=== PATIENT | male | born 1955 | race Caucasian/White ===

== ENCOUNTER 2016-04-24 00:32 | Emergency (ER) | payer OTHER ==
[2016-04-24 01:25] LABS: ACETAMINOPHEN < 10 ug/mL (10-30)
[2016-04-24] MEDS ORDERED: Sodium Chloride 0.9% 1,000 ML IV ONE (02:15)
[2016-04-24 07:29] VITALS: BP 133/74
--- NOTE | 2016-04-24 11:52 | CR ---
INDICATION: Found unresponsive. CHEST: An AP upright view of the chest 04/24/2016 was obtained. No comparisons available. The heart did not appear enlarged. The aorta is tortuous with some minimal calcification suggested near the arch. While a definite active infiltrate or effusion was not identified, there are somewhat heavy markings in the right lower lung field raising question of a minimal patchy bronchopneumonia. No gross consolidating pneumonia or effusion was identified. No evidence of CHF is seen. IMPRESSION: 1. No definite acute process, but difficult to exclude patchy bronchopneumonia at the lower lung field on the right. 2. ASD aorta. MTDD
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
== END 2016-04-24 04:54 | disposition home or self-care (01) ==
LOC: FB.ED 00:32
DX: S01.111A Laceration without foreign body of right eyelid and periocular area, initial encounter (principal); V89.2XXA Person injured in unspecified motor-vehicle accident, traffic, initial encounter; Y90.1 Blood alcohol level of 20-39 mg/100 ml; F10.129 Alcohol abuse with intoxication, unspecified; Z91.048 Other nonmedicinal substance allergy status
CPT/HCPCS: 36415; 70450; 71010; 72125; 80053; 80305; 81001; 82550; 84484; 85025; 85610; 85730; 96360; 99284; G0480; J7040

== ENCOUNTER 2016-10-23 15:29 | Emergency (ER) | payer MEDICAID ==
[2016-10-23] MEDS ORDERED: Bacitracin Oint 15 GM Tube TOP ONE (15:58)
[2016-10-23] MEDS ORDERED: Diphtheria,Pertussis(Acell),Tetanus Vaccine 0.5 ML SDV IM ONE (15:59)
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
[2016-10-23 16:14] VITALS: BP 145/103
== END 2016-10-23 16:13 | disposition home or self-care (01) ==
LOC: FB.ED 15:29
DX: S01.81XA Laceration without foreign body of other part of head, initial encounter (principal); Z90.89 Acquired absence of other organs; Z87.891 Personal history of nicotine dependence; Z23 Encounter for immunization; W26.8XXA Contact with other sharp object(s), not elsewhere classified, initial encounter; Y93.39 Activity, other involving climbing, rappelling and jumping off; Y92.009 Unspecified place in unspecified non-institutional (private) residence as the place of occurrence of the external cause
CPT/HCPCS: 90471; 90715; 99283; A9270-GY

== ENCOUNTER 2017-02-19 00:10 | Emergency (ER) | payer MEDICAID ==
[2017-02-19] MEDS ORDERED: Sodium Chloride 0.9% 10 ML Syringe FLUSH PRN (00:31)
[2017-02-19] MEDS ORDERED: Sodium Chloride 0.9% 1,000 ML IV SCH (00:45)
[2017-02-19] MEDS ORDERED: Potassium Chloride 20 MEQ Tab.ER PO ONE (01:29)
[2017-02-19] MEDS: NS + KCl 20mEq/L 2,000 ML IV SCH ×2 (01:55→03:51)
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
[2017-02-19 06:11] VITALS: BP 135/73
== END 2017-02-19 05:38 | disposition home or self-care (01) ==
LOC: FB.ED 00:10
DX: F10.229 Alcohol dependence with intoxication, unspecified (principal); Y90.2 Blood alcohol level of 40-59 mg/100 ml; Z87.891 Personal history of nicotine dependence
CPT/HCPCS: 36415; 80053; 80305; 84132; 85025; 96365; 96366; 99284; A9270; G0480; J3480

== ENCOUNTER 2017-03-15 16:13 | Observation (INO) | payer MEDICAID ==
--- NOTE | 2017-03-15 18:44 | EDM.PDOC ---
ED HPI GENERAL MEDICAL PROBLEM - General Chief Complaint: Laceration Stated Complaint: HEAD INJURY Time Seen by Provider: 03/15/17 16:15 Source of Information: Reports: Patient History Limitations: Reports: No Limitations - History of Present Illness INITIAL COMMENTS - FREE TEXT/NARRATIVE: 61 y.o.w.m came to the ed by EMS after he slipped on ice and fell onto hi right head. Pt denied LOC but has in the past a SD hemotoma. Pt stated, he fell frequently. Why he is falling so often was never found out. Pt stated, he horn not drink or smoke. He has, however, a lot of shaking of his extremities. He could not tell me when he took his last ETOH. He lived by himself, has no friends, no driving license and has no car. He walks wherever he has to go. No N /V/D or dizziness. He noticed blood at his right tamika for which he called EMS> BP 130/90 RR 12 Pulse ox 98 on RA Temp 36.8 pulse 112 Onset Date: 03/15/17 Onset Time: 15:00 Duration: Hour(s): Location: Reports: Head, Generalized Quality: Reports: Same as Previous Episode Severity: Mild Improves with: Reports: Rest Worsens with: Reports: Movement Context: Reports: Trauma (fall on ice) Associated Symptoms: Reports: No Other Symptoms lt mid finger, Rt hand & face Pain Score (Numeric/FACES): 3 - Related Data Allergies Allergy/AdvReac Type Severity Reaction Status Date / Time No Known Allergies Allergy Verified 03/15/17 17:53 Home Meds: Home Meds NK [No Known Home Meds] 10/23/16 [History] Past Medical History HEENT History: Reports: Sinusitis Cardiovascular History: Reports: Hypertension Musculoskeletal History: Reports: Other (See Below) Other Musculoskeletal History: injury to rt shoulder 2 month ago Neurological History: Reports: Other (See Below) Other Neuro History: subdural bleed Psychiatric History: Reports: Other (See Below) Other Psychiatric History: alcohol abuse. - Infectious Disease History Infectious Disease History: Reports: Chicken Pox, Mumps - Past Surgical History HEENT Surgical History: Reports: Naso-Sinus Surgery GI Surgical History: Reports: Appendectomy, Hernia, Inguinal Male Surgical History: Reports: Varicocele Resection Social & Family History - Family History Family Medical History: Noncontributory - Tobacco Use Smoking Status *Q: Never Smoker Years of Tobacco use: 20 Packs/Tins Daily: 0.5 Used Tobacco, but Quit: Yes Month Tobacco Last Used: unknown Second Hand Smoke Exposure: No - Caffeine Use Caffeine Use: Reports: Coffee, Soda - Alcohol Use Days Per Week of Alcohol Use: 7 Number of Drinks Per Day: 1 Total Drinks Per Week: 7 - Recreational Drug Use Recreational Drug Use: No ED ROS GENERAL - Review of Systems Review Of Systems: See Below Constitutional: Reports: No Symptoms HEENT: Reports: No Symptoms Respiratory: Reports: No Symptoms Cardiovascular: Reports: No Symptoms Endocrine: Reports: No Symptoms GI/Abdominal: Reports: No Symptoms : Reports: No Symptoms Musculoskeletal: Reports: No Symptoms Skin: Reports: No Symptoms Neurological: Reports: No Symptoms Psychiatric: Reports: No Symptoms Hematologic/Lymphatic: Reports: No Symptoms Immunologic: Reports: No Symptoms ED EXAM, SKIN/RASH Exam: See Below Exam Limited By: Physical Impairment General Appearance: Alert, No Apparent Distress, Thin Eye Exam: Bilateral Eye: Normal Inspection Ears: Normal External Exam Nose: Normal Inspection, Normal Mucosa Throat/Mouth: Normal Inspection, Normal Lips Head: Other (3 lacerations at the right temp area) Neck: Normal Inspection Respiratory/Chest: No Respiratory Distress, Lungs Clear, Normal Breath Sounds Cardiovascular: Normal Peripheral Pulses, Regular Rate, Rhythm, No Edema, No Gallop GI/Abdominal: Normal Bowel Sounds, Soft, Non-Tender (Male) Exam: Deferred Rectal (Males) Exam: Deferred Back Exam: Normal Inspection, Full Range of Motion Extremities: Normal Inspection, Normal Range of Motion, Non-Tender, No Pedal Edema Neurological: Alert, Oriented, CN II-XII Intact, Normal Cognition, Normal Gait, Other (tremors) Psychiatric: Anxious, Depressed Mood Skin: Warm Location, Skin: Head, Face Associated features: Warmth, Tenderness Lymphatic: No Adenopathy ED SKIN PROCEDURES - Laceration/Wound Repair Right Lateral Head Lac/Wound length In cm: 5 Appearance: Superficial, Stellate, Irregular Distal NVT: Neuro & Vascular Intact Anesthetic Type: Local Local Anesthesia - Bupivicaine (Marcaine): 0.5% Plain Local Anesthetic Volume: 5cc Skin Prep: Providone-Iodine (Betadine) Saline Irrigation (cc's): 8 Suture Size: 4-0 # of Sutures: 8 Suture Type: Other (ethilon) Drain Placement: No Sterile Dressing Applied: Nurse Tetanus Status Addressed: Yes (UTD) Complications: No Course - Vital Signs Text/Narrative:: 61 y.o.w.m came to the ed by EMS after he slipped on ice and fell onto hi right head. Pt denied LOC but has in the past a SD hemotoma. Pt stated, he fell frequently. Why he is falling so often was never found out. Pt stated, he ohrn not drink or smoke. He has, however, a lot of shaking of his extremities. He could not tell me when he took his last ETOH. He lived by himself, has no friends, no driving license and has no car. He walks wherever he has to go. No N /V/D or dizziness. He noticed blood at his right tamika for which he called EMS> BP 130/90 RR 12 Pulse ox 98 on RA Temp 36.8 pulse 112 PE: Thin/cachectic 61 y.o.w.m eith a head lac and tremor Procedure: Please see note above. Imaging: CT head; R pot SD bleed, old. NAD as per RAD Reexam: as the pt came back from the CT, he had a Gandmall Sz while in his bed. Old record were checked which showed pt is a chronic ETOH abuser. Pt was placed in last stable condition, Iv was stared and 2 mg if Ativan were given, which helped some. 50 mg if Benadryl were given, whic helped some. Pt was still very combative, Haldol was indicated. Pt was admitted to ICU. Labs: NL WBC BUN 6 CR 1.2 INR 1.12 Impression: H/O frequent falls, H/O ETOH abuse, cachexia, ETOH withdrawel Seizure 11.49 pm: Consultation: Dr. Gong: Last Recorded V/S: Last Vital Signs Temp 36.9 C 03/16/17 00:21 Pulse 136 H 03/15/17 19:50 Resp 15 03/16/17 02:00 BP 131/95 H 03/16/17 02:00 Pulse Ox 99 03/16/17 02:00 - Orders/Labs/Meds Orders: Active Orders 24 hr Category Date Time Status Head wo Cont [CT] Stat Exams 03/15/17 18:40 Taken AMMONIA [REF] Stat Lab 03/15/17 19:25 Received Seizure Precautions [OM.PC] Routine Oth 03/15/17 19:22 Ordered Medication Orders Lorazepam (Ativan) 1 mg IVPUSH Q2H PRN PRN Reason: Agitation Ondansetron HCl (Zofran) 4 mg IV Q4H PRN PRN Reason: Nausea/Vomiting Labs: Laboratory Tests 03/15/17 03/15/17 03/15/17 Range/Units 19:25 19:25 19:25 WBC 6.7 (4.5-12.0) X10-3/uL RBC 3.42 L (4.30-5.75) x10(6)uL Hgb 13.5 (11.5-15.5) g/dL Hct 36.9 (30.0-51.3) % MCV 107.9 H (80-96) fL MCH 39.4 H (27.7-33.6) pg MCHC 36.5 H (32.2-35.4) g/dL RDW 19.8 H (11.5-15.5) % Plt Count 139 (125-369) X10(3)uL MPV 7.1 L (7.4-10.4) fL Neut % (Auto) 41.9 L (46-82) % Lymph % (Auto) 46.6 H (13-37) % Whitman % (Auto) 10.9 (4-12) % Eos % (Auto) 0 L (1.0-5.0) % Baso % (Auto) 0 (0-2) % Neut # (Auto) 2.8 (1.6-8.3) # Lymph # (Auto) 3.2 (0.6-5.0) # Whitman # (Auto) 0.7 (0.0-1.3) # Eos # (Auto) 0.0 (0.0-0.8) # Baso # (Auto) 0.0 (0.0-0.2) # PT 12.2 H (8.7-11.1) INR 1.21 H (0.89-1.13) Sodium 138 (135-145) mmol/L Potassium 3.5 (3.5-5.3) mmol/L Chloride 98 L D (100-110) mmol/L Carbon Dioxide 17 L (21-32) mmol/L BUN 6 L (7-18) mg/dL Creatinine 1.2 (0.70-1.30) mg/dL Est Cr Clr Drug Dosing 75.16 mL/min Estimated GFR (MDRD) > 60 (>60) BUN/Creatinine Ratio 5.0 L (9-20) Glucose 139 H (80-116) mg/dL Calcium 9.0 (8.6-10.2) mg/dL Total Bilirubin 1.3 (0.1-1.3) mg/dL Direct Bilirubin 0.40 H (0.10-0.20) mg/dL AST 90 H (5-25) IU/L ALT 51 H D (12-36) U/L Alkaline Phosphatase 164 H (56-112) IU/L NT-Pro-B Natriuret Pep (<=125) pg/mL Total Protein 8.0 (6.0-8.0) g/dL Albumin 3.3 (3.2-4.6) g/dL Amylase 94 (25-115) U/L Ethyl Alcohol (<0.03) % 03/15/17 Range/Units 19:25 WBC (4.5-12.0) X10-3/uL RBC (4.30-5.75) x10(6)uL Hgb (11.5-15.5) g/dL Hct (30.0-51.3) % MCV (80-96) fL MCH (27.7-33.6) pg MCHC (32.2-35.4) g/dL RDW (11.5-15.5) % Plt Count (125-369) X10(3)uL MPV (7.4-10.4) fL Neut % (Auto) (46-82) % Lymph % (Auto) (13-37) % Whitman % (Auto) (4-12) % Eos % (Auto) (1.0-5.0) % Baso % (Auto) (0-2) % Neut # (Auto) (1.6-8.3) # Lymph # (Auto) (0.6-5.0) # Whitman # (Auto) (0.0-1.3) # Eos # (Auto) (0.0-0.8) # Baso # (Auto) (0.0-0.2) # PT (8.7-11.1) INR (0.89-1.13) Sodium (135-145) mmol/L Potassium (3.5-5.3) mmol/L Chloride (100-110) mmol/L Carbon Dioxide (21-32) mmol/L BUN (7-18) mg/dL Creatinine (0.70-1.30) mg/dL Est Cr Clr Drug Dosing mL/min Estimated GFR (MDRD) (>60) BUN/Creatinine Ratio (9-20) Glucose (80-116) mg/dL Calcium (8.6-10.2) mg/dL Total Bilirubin (0.1-1.3) mg/dL Direct Bilirubin (0.10-0.20) mg/dL AST (5-25) IU/L ALT (12-36) U/L Alkaline Phosphatase (56-112) IU/L NT-Pro-B Natriuret Pep 1611 H* (<=125) pg/mL Total Protein (6.0-8.0) g/dL Albumin (3.2-4.6) g/dL Amylase (25-115) U/L Ethyl Alcohol < 0.03 (<0.03) % Meds: Medications Generic Name Dose Route Start Last Admin Trade Name Freq PRN Reason Stop Dose Admin Lorazepam 1 mg 03/16/17 00:26 Ativan IVPUSH Q2H PRN Agitation Ondansetron HCl 4 mg 03/15/17 19:59 Zofran IV Q4H PRN Nausea/Vomiting Discontinued Medications Generic Name Dose Route Start Last Admin Trade Name Freq PRN Reason Stop Dose Admin Diphenhydramine HCl Confirm 03/15/17 19:10 03/15/17 19:41 Benadryl Administered 03/15/17 19:11 Not Given Dose 50 mg .ROUTE .STK-MED ONE Diphenhydramine HCl 50 mg 03/15/17 19:15 03/15/17 19:13 Benadryl IVPUSH 03/15/17 19:16 50 mg ONETIME ONE Administration Haloperidol Lactate 5 mg 03/15/17 19:13 03/15/17 20:59 Haldol IVPUSH 03/15/17 19:14 Not Given ONETIME ONE Haloperidol Lactate Confirm 03/15/17 19:13 03/15/17 19:41 Haldol Administered 03/15/17 19:14 Not Given Dose 5 mg .ROUTE .STK-MED ONE Haloperidol Lactate 5 mg 03/15/17 19:15 03/15/17 19:15 Haldol IM 03/15/17 19:16 5 mg ONETIME ONE Administration Lorazepam Confirm 03/15/17 19:04 03/15/17 19:41 Ativan Administered 03/15/17 19:05 Not Given Dose 2 mg .ROUTE .STK-MED ONE Lorazepam 2 mg 03/15/17 19:13 03/15/17 19:10 Ativan IVPUSH 03/15/17 19:14 2 mg ONETIME ONE Administration Departure - Departure Time of Disposition: 19:00 Disposition: Admitted As Inpatient 66 Condition: Fair Clinical Impression: Seizure - Discharge Information - My Orders Last 24 Hours: My Active Orders 03/15/17 18:40 Head wo Cont [CT] Stat 03/15/17 19:22 Seizure Precautions [OM.PC] Routine 03/15/17 19:25 AMMONIA [REF] Stat - Assessment/Plan Last 24 Hours: My Active Orders 03/15/17 18:40 Head wo Cont [CT] Stat 03/15/17 19:22 Seizure Precautions [OM.PC] Routine 03/15/17 19:25 AMMONIA [REF] Stat
[2017-03-15] MEDS ORDERED: LORazepam 2 MG/ML SDV ONE (19:04)
[2017-03-15] MEDS ORDERED: diphenhydrAMINE 50 MG/ML SDV ONE (19:10)
[2017-03-15] MEDS ORDERED: Haloperidol Lactate 5 MG/ML SDV ONE (19:13)
[2017-03-15] MEDS ORDERED: LORazepam 2 MG/ML SDV IVPUSH ONE (19:13)
[2017-03-15] MEDS ORDERED: diphenhydrAMINE 50 MG/ML SDV IVPUSH ONE (19:15)
[2017-03-15] MEDS: Haloperidol Lactate 5 MG/ML SDV IVPUSH ONE ×2 (19:15→20:59)
[2017-03-15] MEDS ORDERED: Haloperidol Lactate 5 MG/ML SDV IM ONE (19:15)
[2017-03-15] MEDS ORDERED: Ondansetron 4 MG/2 ML SDV IV PRN (19:59)
[2017-03-15] MEDS ORDERED: Bupivacaine 0.5% 30 ML SDV INFILT ONE (20:00)
[2017-03-16] MEDS ORDERED: LORazepam 2 MG/ML SDV IVPUSH PRN (00:26)
[2017-03-16] MEDS ORDERED: Thiamine 200 MG/2 ML MDV IV ONE (08:32)
--- NOTE | 2017-03-16 08:37 | CT ---
INDICATION: Fell face first, lacerations right side around eye. CT HEAD WITHOUT CONTRAST: Serial contiguous 2.5 and 5-mm sections were obtained through the brain without contrast 03/15/2017 and were compared with examination. Total Exam DLP = 1093.23 mGy-cm. Evidence of right frontoparietal craniotomy is noted for previous subdural. No shift of midline structures, ventricular abnormalities, or significant appearing abnormal areas of density were identified. No bleeding site or hematoma was seen. There is subdural hygroma noted posteroparietal on the right , likely a remnant from previous subdural hematoma. No acute fracture site is identified. There is soft tissue swelling noted overlying the right frontal bone and right orbit. Paranasal sinuses and mastoid air cells appear to be fairly well aerated, with minimal thickening of the lining along a portion of the right maxillary antrum. IMPRESSION: 1. Overall little change from previous study of 09/19/2016, except to note subdural hygroma on the right posteroparietal area, likely the result of previous subdural hematoma in this post right craniotomy patient. No acute intracranial abnormality seen. 2. Right frontal and orbital facial swelling. No specific orbital abnormality identified. 3. Degenerative changes are noted at the atlantoodontoid joint, as partly visualized. Report was called to Dr. Pretty at 1902 hours, 03/15/2017. [facility]
[2017-03-16] MEDS ORDERED: Divalproex Sodium Delayed-Release 500 MG Tab.CR PO ONE (08:38)
[2017-03-16] MEDS ORDERED: Sodium Chloride 0.9% 1,000 ML IV SCH (08:45)
--- NOTE | 2017-03-16 09:11 | PCM.HP ---
H&P History of Present Illness - General Date of Service: 03/16/17 Admit Problem/Dx: Admission Diagnosis/Problem Admission Diagnosis/Problem Seizure Source of Information: Patient, Family, Old Records History Limitations: Reports: No Limitations - History of Present Illness Initial Comments - Free Text/Narative: 61-year-old male who came in because of a head injury. He said that he slipped on ice and hit his head but did not pass out. While in the emergency room,he had Grand mal seizure that was witnessed by the staff. Patients with admitted for observation. He is a well known alcoholic, and has had multiple head injuries and concussions in the past. According to his records he supposed to be taking Keppra but it's unclear when the last time he took it. In November he had a subdural hematoma that was surgically evacuated. He has had ataxia and gait problems to the point of being unable to drive. Sae lives alone. He states he had a recent alcohol use after a few months of sobriety. He denies any headache nausea or vomiting. This morning he is oriented 3. lt mid finger, Rt hand & face Pain Score (Numeric/FACES): 0 - Related Data Allergies/Adverse Reactions: Allergies Allergy/AdvReac Type Severity Reaction Status Date / Time No Known Allergies Allergy Verified 03/15/17 17:53 Home Medications: Home Meds NK [No Known Home Meds] 10/23/16 [History] Past Medical History HEENT History: Reports: Sinusitis Cardiovascular History: Reports: Hypertension Musculoskeletal History: Reports: Other (See Below) Other Musculoskeletal History: injury to rt shoulder 2 month ago Neurological History: Reports: Other (See Below) Other Neuro History: subdural bleed Psychiatric History: Reports: Other (See Below) Other Psychiatric History: alcohol abuse. - Infectious Disease History Infectious Disease History: Reports: Chicken Pox, Mumps - Past Surgical History HEENT Surgical History: Reports: Naso-Sinus Surgery GI Surgical History: Reports: Appendectomy, Hernia, Inguinal Male Surgical History: Reports: Varicocele Resection Social & Family History - Family History Family Medical History: Noncontributory - Tobacco Use Smoking Status *Q: Never Smoker Years of Tobacco use: 20 Packs/Tins Daily: 0.5 Used Tobacco, but Quit: Yes Month Tobacco Last Used: unknown Second Hand Smoke Exposure: No - Caffeine Use Caffeine Use: Reports: Coffee, Soda - Alcohol Use Days Per Week of Alcohol Use: 7 Number of Drinks Per Day: 1 Total Drinks Per Week: 7 - Recreational Drug Use Recreational Drug Use: No H&P Review of Systems - Review of Systems: Review Of Systems: ROS reveals no pertinent complaints other than HPI. Exam - Exam Exam: See Below - Vital Signs Vital Signs: Last Vital Signs Temp 97.9 F 03/16/17 03:11 Pulse 95 03/16/17 07:50 Resp 18 03/16/17 07:50 BP 119/75 03/16/17 07:50 Pulse Ox 95 03/16/17 07:50 Weight: 80.966 kg - Exam General: Alert, Oriented, 4 HEENT: Other (Marked jeanette-orbital hematoma on the left eye). No: EOMI Neck: Supple, Trachea Midline, 2 Lungs: Clear to Auscultation, Normal Respiratory Effort Cardiovascular: Regular Rhythm, Tachycardia GI/Abdominal Exam: Normal Bowel Sounds, Soft, Non-Tender, No Organomegaly, No Distention, No Abnormal Bruit, No Mass, Pelvis Stable (Male) Exam: No Hernia, Normal Inspection, Normal Prostate, Circumcised Rectal (Males) Exam: Normal Exam, Normal Rectal Tone, Prostate Normal Back Exam: Normal Inspection, Full Range of Motion, NT Extremities: Normal Inspection, Normal Range of Motion, Non-Tender, No Pedal Edema, Normal Capillary Refill Skin: Warm, Dry, Intact Neurological: Cranial Nerves Intact, Reflexes Equal Bilateral Neuro Extensive - Mental Status: Alert, Oriented x3, Normal Mood/Affect, Normal Cognition Neuro Extensive - Motor, Sensory, Reflexes: Abnormal Motor, Other (Tremulous) Psychiatric: Alert, Normal Affect, Normal Mood - Patient Data Result Diagrams: 03/15/17 19:25 03/16/17 08:50 Imaging Impressions Last 24 hrs: CT-no acute changes-see report *Q Meaningful Use (ADM) - VTE *Q VTE Criteria *Q: - Stroke *Q Stroke Criteria *Q: - AMI *Q AMI Criteria *Q: - Problem List (1) Ataxia SNOMED Code(s): 27487166 ICD Code: R27.0 - ATAXIA, UNSPECIFIED Status: Acute Current Visit: Yes (2) Alcoholism, chronic SNOMED Code(s): 8069799 ICD Code: F10.20 - ALCOHOL DEPENDENCE, UNCOMPLICATED Status: Chronic Current Visit: No (3) Forehead laceration SNOMED Code(s): 907654551 ICD Code: S01.81XA - LACERATION W/O FOREIGN BODY OF OTH PART OF HEAD, INIT ENCNTR Status: Acute Current Visit: No Qualifiers: Encounter type: initial encounter Qualified Code(s): S01.81XA - Laceration without foreign body of other part of head, initial encounter (4) Seizure SNOMED Code(s): 17244881 ICD Code: R56.9 - UNSPECIFIED CONVULSIONS Status: Acute Current Visit: Yes Problem List Initiated/Reviewed/Updated: Yes Orders Last 24hrs: Active Orders 24 hr Category Date Time Status OT Evaluation and Treatment [CONS] Routine Cons 03/16/17 08:32 Active PT Evaluation and Treatment [CONS] Routine Cons 03/16/17 08:32 Active Adult Diet [DIET] Diet 03/16/17 Lunch Active BASIC METABOLIC PANEL,BMP [CHEM] Stat Lab 03/16/17 08:50 Received CBC WITH AUTO DIFF [HEME] Stat Lab 03/16/17 08:50 Received CREATINE KINASE,CK [CHEM] Routine Lab 03/16/17 08:50 Received MAGNESIUM [CHEM] Routine Lab 03/16/17 08:50 Received LORazepam [Ativan] Med 03/16/17 00:26 Active 1 mg IVPUSH Q2H PRN Sodium Chloride 0.9% [Normal Saline] 1,000 ml Med 03/16/17 08:45 Active IV ASDIRECTED Medication Orders Sodium Chloride (Normal Saline) 1,000 mls @ 100 mls/hr IV ASDIRECTED HANNAH Last Admin: 03/16/17 08:44 Dose: 100 mls/hr Lorazepam (Ativan) 1 mg IVPUSH Q2H PRN PRN Reason: Agitation Ondansetron HCl (Zofran) 4 mg IV Q4H PRN PRN Reason: Nausea/Vomiting Assessment/Plan Comment:: I will advance his diet, and started IV fluids and thiamine. He is to very unstable on his feet and I feel that extensive for discharge until we have a formal physical outpatient therapy evaluation. Of ordered for repeat CBC BMP magnesium level and CPK. mission worker consultation is also necessary. In the meantime I will give him a one-time dose of Depakote for seizure and alcohol withdrawal treatment
[2017-03-16 12:21] VITALS: BP 152/95
--- NOTE | 2017-03-19 08:49 | PN ---
DATE SEEN: 03/16/2017 ADDENDUM: I spoke to the staff and also reviewed the report from Physical Therapy. The patient is able to be independent at home. He is not interested in inpatient care or detoxification or chemical dependency treatment. He is drinking and eating with no vomiting and I have decided to discharge him home. His labs did show creatine kinase of 360, probably from muscle injury, and magnesium was 1.4. His electrolytes are back to normal. DISCHARGE MEDICATIONS: I will discharge him home on: 1. Depakote 500 mg a day for withdrawal and for seizures. 2. Magnesium tablets 400 mg 3 times a day. 3. He will go home on thiamine 100 mg a day. He is advised to follow up with Dr. Gomez in 5 to 7 days. /[id number] KEYLA/CHRISTINA
== END 2017-03-16 16:18 | disposition home or self-care (01) ==
LOC: FB.ED 16:13 → FB.ICU 19:59
PROVIDERS: ADMIT Emergency Medicine; ATTEND Family Medicine
DX: S01.81XA Laceration without foreign body of other part of head, initial encounter (principal); I10 Essential (primary) hypertension; R27.0 Ataxia, unspecified; F10.20 Alcohol dependence, uncomplicated; R56.9 Unspecified convulsions; W00.0XXA Fall on same level due to ice and snow, initial encounter; Z91.81 History of falling; Z90.49 Acquired absence of other specified parts of digestive tract
CPT/HCPCS: 36415; 70450; 80048; 80076; 82140; 82150; 82550; 83735; 83880; 85025; 85610; 97161; 99283; A9270; G0480; J1200; J1630; J2060; J3411; J7040; 96361; 96372; 96374; 96375; G0378; J7030

== ENCOUNTER 2017-03-28 20:08 | Observation (INO) | payer MEDICAID, OTHER ==
[2017-03-28] MEDS ORDERED: LORazepam 2 MG/ML MDV ONE (20:25)
[2017-03-28] MEDS ORDERED: LORazepam 2 MG/ML MDV IM SCH (20:30)
[2017-03-28] MEDS ORDERED: Potassium Chloride 10% 20 MEQ/15 ML Soln 15 ML UD Cup PO ONE (21:34)
[2017-03-28] MEDS ORDERED: Pantoprazole 40 MG Vial IV SCH (22:00)
[2017-03-28] MEDS ORDERED: LORazepam 1 MG Tab ONE (22:06)
[2017-03-28] MEDS ORDERED: Ondansetron 4 MG/2 ML SDV IV PRN (22:24)
[2017-03-28] MEDS ORDERED: Acetaminophen 325 MG Tab PO PRN (22:24)
[2017-03-28] MEDS ORDERED: Ibuprofen 600 MG Tab PO PRN (22:24)
[2017-03-28] MEDS ORDERED: LORazepam 1 MG Tab PO SCH ×2 (22:26→22:45)
[2017-03-28] MEDS ORDERED: Sodium Chloride 0.9% 1,000 ML IV SCH (22:30)
[2017-03-28] MEDS ORDERED: Thiamine 100 MG in Sodium Chloride 0.9% 50 ML IV ONE (22:32)
[2017-03-28] MEDS ORDERED: Metoprolol Tartrate 25 MG Tab PO PRN (22:32)
[2017-03-28] MEDS: Sodium Chloride 0.9% 10 ML Syringe FLUSH PRN (22:58)
[2017-03-28] MEDS: Dextrose 5%-0.9% NaCl 1,000 ML IV SCH (22:59)
[2017-03-28] MEDS: Multivitamin Tab PO SCH (23:28)
[2017-03-28] MEDS: Folic Acid 1 MG Tab PO SCH (23:28)
[2017-03-29] MEDS: Dextrose 5%-0.9% NaCl 1,000 ML IV SCH (07:15)
[2017-03-29] MEDS: Sodium Chloride 0.9% 10 ML Syringe FLUSH PRN (08:00)
--- NOTE | 2017-03-29 08:32 | PCM.HP ---
H&P History of Present Illness - General Date of Service: 03/29/17 Admit Problem/Dx: Admission Diagnosis/Problem Admission Diagnosis/Problem Seizure Source of Information: Patient, Other (Nurses) History Limitations: Reports: No Limitations - History of Present Illness Initial Comments - Free Text/Narative: Assist 61-year-old male patient has a history of drinking a half of liter of vodka every day. He was thrown in halfway on Sunday of this week which is 2 days ago for a probation violation. Last night and then made pushed the [employer] button in this patient was having a seizure. He was brought here and then admitted. Patient admits that he was having some shakes this week. He also is on Depakote for seizures after he had a subdural hematoma in July 2016. He is evacuated [facility] in [place]. He's not sure if he's ever had a seizure other than from alcohol according to the patient. This morning the patient feels good. Patient denies fevers. He has nasal congestion from chronic environmental allergies. There is reportedly shaky when he walks. - Related Data Allergies/Adverse Reactions: Allergies Allergy/AdvReac Type Severity Reaction Status Date / Time No Known Allergies Allergy Verified 03/28/17 21:24 Home Medications: Home Meds LORazepam [Ativan] 2 mg PO ONETIME #1 tablet 03/28/17 [Rx] Divalproex Sodium [Divalproex Sodium ER] 500 mg PO DAILY 03/29/17 [History] Magnesium Oxide [Magnesium] 241.3 mg PO TID 03/29/17 [History] Thiamine HCl [Vitamin B-1] 100 mg PO DAILY 03/29/17 [History] Past Medical History HEENT History: Reports: Sinusitis Cardiovascular History: Reports: Hypertension Musculoskeletal History: Reports: Other (See Below) Other Musculoskeletal History: injury to rt shoulder 2 month ago Neurological History: Reports: Other (See Below) Other Neuro History: subdural bleed Psychiatric History: Reports: Other (See Below) Other Psychiatric History: alcohol abuse. - Infectious Disease History Infectious Disease History: Reports: Chicken Pox, Mumps - Past Surgical History HEENT Surgical History: Reports: Naso-Sinus Surgery GI Surgical History: Reports: Appendectomy, Hernia, Inguinal Male Surgical History: Reports: Varicocele Resection Social & Family History - Family History Family Medical History: Noncontributory - Tobacco Use Smoking Status *Q: Never Smoker Years of Tobacco use: 20 Packs/Tins Daily: 0.5 Used Tobacco, but Quit: Yes Month Tobacco Last Used: unknown Second Hand Smoke Exposure: No - Caffeine Use Caffeine Use: Reports: Coffee, Soda - Alcohol Use Days Per Week of Alcohol Use: 7 Number of Drinks Per Day: 1 Total Drinks Per Week: 7 - Recreational Drug Use Recreational Drug Use: No H&P Review of Systems - Review of Systems: Review Of Systems: See Below General: Reports: No Symptoms HEENT: Reports: Rhinitis Pulmonary: Reports: No Symptoms Cardiovascular: Reports: No Symptoms Gastrointestinal: Reports: No Symptoms Genitourinary: Reports: No Symptoms Musculoskeletal: Reports: No Symptoms Skin: Reports: Other (Was reported by the nurse) Psychiatric: Reports: No Symptoms Neurological: Reports: Seizure Hematologic/Lymphatic: Reports: No Symptoms Immunologic: Reports: No Symptoms Exam - Exam Exam: See Below - Vital Signs Vital Signs: Last Vital Signs Temp 98.1 F 03/29/17 05:53 Pulse 88 03/29/17 06:42 Resp 15 03/29/17 06:42 BP 137/68 03/29/17 06:42 Pulse Ox 96 03/29/17 06:42 Weight: 181 lb 7 oz - Exam General: Alert, Oriented, Cooperative HEENT: PERRLA, Posterior Pharynx Clear, TMs Clear Neck: Supple, Trachea Midline Lungs: Clear to Auscultation, Normal Respiratory Effort. No: Crackles, Rales, Rhonchi Cardiovascular: Regular Rate, Regular Rhythm GI/Abdominal Exam: Normal Bowel Sounds, Soft, Non-Tender, No Organomegaly, No Distention, No Abnormal Bruit, No Mass Back Exam: Normal Inspection, Full Range of Motion Extremities: Normal Inspection, Normal Range of Motion, Non-Tender, No Pedal Edema Skin: Warm, Intact Neurological: Normal Speech, Normal Tone, Other (Gait not tested) Neuro Extensive - Mental Status: Alert, Oriented x3, Normal Mood/Affect, Normal Cognition Neuro Extensive - Motor, Sensory, Reflexes: No: Ataxia Psychiatric: Alert, Normal Affect, Normal Mood - Patient Data Lab Results Last 24 hrs: Laboratory Results - last 24 hr 03/29/17 03/29/17 03/29/17 Range/Units 06:30 06:30 06:30 WBC 4.5 (4.5-12.0) X10-3/uL RBC 3.28 L (4.30-5.75) x10(6)uL Hgb 11.1 L (11.5-15.5) g/dL Hct 33.7 (30.0-51.3) % MCV 102.6 H (80-96) fL MCH 33.7 H (27.7-33.6) pg MCHC 32.9 (32.2-35.4) g/dL RDW 16.7 H (11.5-15.5) % Plt Count 118 L (125-369) X10(3)uL MPV 7.9 (7.4-10.4) fL Neut % (Auto) 63.5 (46-82) % Lymph % (Auto) 26.0 (13-37) % Price % (Auto) 9.9 (4-12) % Eos % (Auto) 0 L (1.0-5.0) % Baso % (Auto) 0 (0-2) % Neut # (Auto) 2.9 (1.6-8.3) # Lymph # (Auto) 1.2 (0.6-5.0) # Price # (Auto) 0.4 (0.0-1.3) # Eos # (Auto) 0.0 (0.0-0.8) # Baso # (Auto) 0.0 (0.0-0.2) # Sodium 141 (135-145) mmol/L Potassium 3.2 L (3.5-5.3) mmol/L Chloride 106 D (100-110) mmol/L Carbon Dioxide 28 (21-32) mmol/L BUN 3 L (7-18) mg/dL Creatinine 0.7 (0.70-1.30) mg/dL Est Cr Clr Drug Dosing 121.63 mL/min Estimated GFR (MDRD) > 60 (>60) BUN/Creatinine Ratio 4.3 L (9-20) Glucose 98 (80-116) mg/dL Calcium 8.3 L (8.6-10.2) mg/dL Total Bilirubin 1.0 (0.1-1.3) mg/dL AST 49 H D (5-25) IU/L ALT 34 D (12-36) U/L Alkaline Phosphatase 119 H (56-112) IU/L Troponin I < 0.017 L (<0.017-0.056) ng/mL Total Protein 6.0 (6.0-8.0) g/dL Albumin 2.4 L (3.2-4.6) g/dL Globulin 3.6 g/dL Albumin/Globulin Ratio 0.7 Result Diagrams: 03/29/17 06:30 03/29/17 06:30 EKG INTERPRETATION EKG Interpretation Comments: Sinus rhythm with no ST and mellitus. *Q Meaningful Use (ADM) - VTE *Q VTE Criteria *Q: - Stroke *Q Stroke Criteria *Q: - AMI *Q AMI Criteria *Q: - Problem List (1) Alcohol withdrawal SNOMED Code(s): 280554529 ICD Code: F10.239 - ALCOHOL DEPENDENCE WITH WITHDRAWAL, UNSPECIFIED Status : Acute Current Visit: Yes (2) Hypokalemia SNOMED Code(s): 71386947 ICD Code: E87.6 - HYPOKALEMIA Status: Acute Current Visit: Yes (3) Elevated liver function tests SNOMED Code(s): 426170196 ICD Code: R79.89 - OTHER SPECIFIED ABNORMAL FINDINGS OF BLOOD CHEMISTRY Status: Acute Current Visit: Yes (4) Palliative care status SNOMED Code(s): 665549758 ICD Code: Z51.5 - ENCOUNTER FOR PALLIATIVE CARE Status: Acute Current Visit: Yes (5) Seizure SNOMED Code(s): 53034436 ICD Code: R56.9 - UNSPECIFIED CONVULSIONS Status: Acute Current Visit: No (6) Alcoholism, chronic SNOMED Code(s): 2845962 ICD Code: F10.20 - ALCOHOL DEPENDENCE, UNCOMPLICATED Status: Chronic Current Visit: No Problem List Initiated/Reviewed/Updated: Yes Orders Last 24hrs: Active Orders 24 hr Category Date Time Status Assess Neurological Status [RC] ASDIRECTED Care 03/28/17 22:32 Active CIWAA Assessment [RC] Q1H Care 03/28/17 22:32 Active Notify Provider [RC] PRN Care 03/28/17 22:32 Active Pulse Oximetry [RC] CONTINUOUS Care 03/28/17 22:33 Active Up With Assistance [RC] ASDIRECTED Care 03/29/17 08:22 Active Regular Diet [DIET] Diet 03/29/17 Lunch Active Folic Acid Med 03/28/17 22:45 Active 1 mg PO DAILY LORazepam [Ativan] Med 03/28/17 22:26 Active 2 mg PO BEDTIME LORazepam [Ativan] Med 03/28/17 22:45 Active See Protocol PO ASDIRECTED Metoprolol Tartrate [Lopressor] Med 03/28/17 22:32 Active 25 mg PO Q6H PRN Multivitamins [Tab-A-Luz Elena] Med 03/28/17 22:45 Active 1 tab PO DAILY Pantoprazole [ProTONIX IV] Med 03/28/17 22:00 Active 40 mg IV Q24H Sodium Chloride 0.9% [Saline Flush] Med 03/28/17 22:32 Active 10 ml FLUSH ASDIRECTED PRN Convert IV to Saline Lock [OM.PC] Routine Oth 03/29/17 08:22 Ordered Medication Orders Acetaminophen (Tylenol) 650 mg PO Q4H PRN PRN Reason: Pain (Mild 1-3)/fever Folic Acid (Folic Acid) 1 mg PO DAILY [facility] Last Admin: 03/28/17 23:28 Dose: Ibuprofen (Motrin) 600 mg PO Q6H PRN PRN Reason: Pain (mild 1-3) Lorazepam (Ativan) 2 mg IM ONETIME [facility] Last Admin: 03/28/17 20:25 Dose: 2 mg Lorazepam (Ativan) 2 mg PO BEDTIME [facility] Last Admin: 03/28/17 22:20 Dose: 2 mg Lorazepam (Ativan) 0 mg PO ASDIRECTED [facility] PRN Reason: Protocol Metoprolol Tartrate (Lopressor) 25 mg PO Q6H PRN PRN Reason: See Label Comment Multivitamins/Minerals/Vitamin C (Tab-A-Luz Elena) 1 tab PO DAILY [facility] Last Admin: 03/28/17 23:28 Dose: Ondansetron HCl (Zofran) 4 mg IV Q4H PRN PRN Reason: Nausea/Vomiting Pantoprazole Sodium (Protonix Iv) 40 mg IV Q24H [facility] Last Admin: 03/28/17 23:14 Dose: 40 mg Sodium Chloride (Saline Flush) 10 ml FLUSH ASDIRECTED PRN PRN Reason: Keep Vein Open Last Admin: 03/28/17 22:58 Dose: 10 ml Assessment/Plan Comment:: 1. Patient is admitted for alcohol withdrawal and seizures. 2. Patient is off the seizure medicine that will be restarted. 3. Was given IV fluids originally but doing well so saline lock his IV and stop his fluids. 4. Patient had a head CT and we will track down the results. It is not to us at this point. 5. Regular diet. 6. Alcohol withdrawal protocol. 7. Up with assist.
[2017-03-29] MEDS ORDERED: Divalproex Sodium 500 MG Tab.ER PO SCH (10:30)
[2017-03-29] MEDS ORDERED: Thiamine 100 MG Tab PO SCH (10:30)
[2017-03-29] MEDS: Multivitamin Tab PO SCH (10:56)
[2017-03-29] MEDS: Folic Acid 1 MG Tab PO SCH (10:56)
--- NOTE | 2017-03-29 12:08 | ER ---
DATE SEEN: 03/28/2017 HISTORY OF PRESENT ILLNESS: This 61-year-old was arrested yesterday for DWI driving violation. He was in the senior living, had a seizure in the senior living just before he came. The patient was seen around 2000 hours in the ED. He violated his parole and patrol community service officer had called him to check on him, and he had been drinking, he had slurred speech. Consequently, he was arrested and put in senior living. He has previously documented cystic hygroma, right posterior parietal area, as a result of previous subdural hematoma and a right craniotomy. CURRENT MEDICATIONS: None other than Acetaminophen. ALLERGIES: None. History is limited because he is not capable of providing history for us, or talking to us at this point. PHYSICAL EXAMINATION: GENERAL: He is unshaven. HEENT: PERRLA intact. EOMS normal. Hearing: He does respond to speech - it is limited. He has a tremor with extended hands. NECK: Supple. No cervical adenopathy. No abnormality. No thyromegaly. Before the neck was moved, he had a CT of the head that was negative. LUNGS: Clear without rales. HEART: S1, S2. No murmur. SKIN: Chest wall abrasion to his right axillary region and posterior axillary region. Also, he has ecchymoses to his elbows, right and left elbows. No lacerations noted. No bleeding noted. ABDOMEN: Soft. No guarding. No abdominal discomfort. No hepatosplenomegaly. Liver edge not palpable. Spleen is not palpable. LOWER EXTREMITIES: Without edema. NEUROLOGICAL: Deep tendon reflexes hypoactive in upper and lower extremities, but present. Cranial nerves 2 through 12 intact. It is difficult to test his hearing since he is postictal. No seizures noted. Difficult to test, except for he does move his eyes sufficiently to testing. Gag is in place. Protects his airway. IMAGING DATA: CT of the head demonstrated right frontal hygroma, [id number] shift, midline shift, unchanged from 03/15/2017. Sinuses normal. Orbits are negative. 2-mm persistent [id number] midline shift as noted previously. He has tongue fasciculations. LABORATORY FINDINGS: Hypokalemia, 3.3 potassium. He was given 40 mEq oral potassium in the ER. Hemoglobin normal at 12.6 with a macrocytosis, reflecting B12 deficiency. White count 3800. D-dimer elevated to 1290, etiology was indeterminate. There are no suggesting lesions. Further follow-up tomorrow. Perhaps it has something to do with lying on bed or his inebriation and chronic ethanolism with lying in bed after inebriation. Glucose reactive. Glucose elevated at 119. BUN/creatinine ratio is low. Magnesium low at 1.7. AST and ALT of 66 and 44, slightly elevated. Alkaline phosphatase slightly elevated. Troponin normal. Alcohol less than 0.03. ASSESSMENT: Alcohol withdrawal with seizure. Hospitalized and observed. The patient to use Ativan as therapeutic medical protection for his recurrent seizures. He received IV fluids, mild dehydration. PLAN: The patient admitted for observation and withdrawal therapy and [facility] protocol used. /[id number] INDRA/CHRISTINA
[2017-03-29] MEDS: Magnesium Oxide 400 MG Tab PO SCH ×2 (14:19→20:03)
[2017-03-29 17:52] VITALS: BP 155/97
--- NOTE | 2017-03-29 18:24 | PCM.DCSUM1 ---
Discharge Summary - Hospital Course Free Text/Narrative:: Hospital course-patient was evaluated and admitted. Scans of his head is normal. Turns out he was off his antiseizure medicine for 3-4 days because he was in care home. Patient did well all day with good coordination and no tremors. Also and blood pressure slightly elevated. He. To be coming out of any alcohol withdrawal. Because of this we'll discharge him home back on his medicines. We did restart his home meds including his antiseizure medicine. Potassium slightly low that should correct on its own as he has a better diet. Brief History: This is a 61-year-old male patient has a history of drinking a half of liter of vodka every day. He was thrown in care home on Sunday of this week which is 2 days ago for a probation violation. Last night and then made pushed the [employer] button in this patient was having a seizure. He was brought here and then admitted. Patient admits that he was having some shakes this week. He also is on Depakote for seizures after he had a subdural hematoma in July 2016. He is evacuated [facility] in [place]. He's not sure if he's ever had a seizure other than from alcohol according to the patient. This morning the patient feels good. Patient denies fevers. He has nasal congestion from chronic environmental allergies. There is reportedly shaky when he walks. - Discharge Data Discharge Date: 03/29/17 Discharge Disposition: Home, Self-Care 01 Condition: Good - Discharge Diagnosis/Problem(s) (1) Alcohol withdrawal SNOMED Code(s): 291549979 ICD Code: F10.239 - ALCOHOL DEPENDENCE WITH WITHDRAWAL, UNSPECIFIED Status : Acute Current Visit: Yes (2) Hypokalemia SNOMED Code(s): 09743810 ICD Code: E87.6 - HYPOKALEMIA Status: Acute Current Visit: Yes (3) Elevated liver function tests SNOMED Code(s): 114258478 ICD Code: R79.89 - OTHER SPECIFIED ABNORMAL FINDINGS OF BLOOD CHEMISTRY Status: Acute Current Visit: Yes (4) Palliative care status SNOMED Code(s): 993647821 ICD Code: Z51.5 - ENCOUNTER FOR PALLIATIVE CARE Status: Acute Current Visit: Yes (5) Seizure SNOMED Code(s): 60117134 ICD Code: R56.9 - UNSPECIFIED CONVULSIONS Status: Acute Current Visit: No (6) Alcoholism, chronic SNOMED Code(s): 0415172 ICD Code: F10.20 - ALCOHOL DEPENDENCE, UNCOMPLICATED Status: Chronic Current Visit: No - Patient Instructions Diet: Regular Diet as Tolerated Activity: As Tolerated Driving: Do Not Drive Showering/Bathing: May Shower Other/Special Instructions: 1. Recheck with Dr. Gomez in 7-10 days. - Discharge Plan Home Medications: Home Meds Divalproex Sodium [Divalproex Sodium ER] 500 mg PO DAILY 03/29/17 [History] Magnesium Oxide [Magnesium] 400 mg PO TID 03/29/17 [History] Thiamine HCl [Vitamin B-1] 100 mg PO DAILY 03/29/17 [History] Forms: ED Department Discharge Referrals: Red Gomez MD [Primary Care Provider] - - Discharge Summary/Plan Comment DC Time >30 min.: No - Patient Data Vitals - Most Recent: Last Vital Signs Temp 98.6 F 03/29/17 16:00 Pulse 100 03/29/17 17:52 Resp 18 03/29/17 17:52 BP 155/97 H 03/29/17 17:52 Pulse Ox 99 03/29/17 17:52 Weight - Most Recent: 181 lb 7 oz I&O - Last 24 hours: Intake & Output 03/29/17 03/29/17 03/29/17 06:59 14:59 22:59 Intake Total 775 250 Balance 775 250 Lab Results - Last 24 hrs: Laboratory Results - last 24 hr 03/29/17 03/29/17 03/29/17 Range/Units 06:30 06:30 06:30 WBC 4.5 (4.5-12.0) X10-3/uL RBC 3.28 L (4.30-5.75) x10(6)uL Hgb 11.1 L (11.5-15.5) g/dL Hct 33.7 (30.0-51.3) % MCV 102.6 H (80-96) fL MCH 33.7 H (27.7-33.6) pg MCHC 32.9 (32.2-35.4) g/dL RDW 16.7 H (11.5-15.5) % Plt Count 118 L (125-369) X10(3)uL MPV 7.9 (7.4-10.4) fL Neut % (Auto) 63.5 (46-82) % Lymph % (Auto) 26.0 (13-37) % [place] % (Auto) 9.9 (4-12) % Eos % (Auto) 0 L (1.0-5.0) % Baso % (Auto) 0 (0-2) % Neut # (Auto) 2.9 (1.6-8.3) # Lymph # (Auto) 1.2 (0.6-5.0) # [place] # (Auto) 0.4 (0.0-1.3) # Eos # (Auto) 0.0 (0.0-0.8) # Baso # (Auto) 0.0 (0.0-0.2) # Sodium 141 (135-145) mmol/L Potassium 3.2 L (3.5-5.3) mmol/L Chloride 106 D (100-110) mmol/L Carbon Dioxide 28 (21-32) mmol/L BUN 3 L (7-18) mg/dL Creatinine 0.7 (0.70-1.30) mg/dL Est Cr Clr Drug Dosing 121.63 mL/min Estimated GFR (MDRD) > 60 (>60) BUN/Creatinine Ratio 4.3 L (9-20) Glucose 98 (80-116) mg/dL Calcium 8.3 L (8.6-10.2) mg/dL Total Bilirubin 1.0 (0.1-1.3) mg/dL AST 49 H D (5-25) IU/L ALT 34 D (12-36) U/L Alkaline Phosphatase 119 H (56-112) IU/L Troponin I < 0.017 L (<0.017-0.056) ng/mL Total Protein 6.0 (6.0-8.0) g/dL Albumin 2.4 L (3.2-4.6) g/dL Globulin 3.6 g/dL Albumin/Globulin Ratio 0.7 Med Orders - Current: Current Medications Acetaminophen (Tylenol) 650 mg PO Q4H PRN PRN Reason: Pain (Mild 1-3)/fever Divalproex Sodium (Depakote Er) 500 mg PO DAILY [facility] Last Admin: 03/29/17 11:14 Dose: 500 mg Folic Acid (Folic Acid) 1 mg PO DAILY [facility] Last Admin: 03/29/17 10:56 Dose: 1 mg Ibuprofen (Motrin) 600 mg PO Q6H PRN PRN Reason: Pain (mild 1-3) Lorazepam (Ativan) 2 mg IM ONETIME [facility] Last Admin: 03/28/17 20:25 Dose: 2 mg Lorazepam (Ativan) 2 mg PO BEDTIME [facility] Last Admin: 03/28/17 22:20 Dose: 2 mg Lorazepam (Ativan) 0 mg PO ASDIRECTED [facility] PRN Reason: Protocol Magnesium Oxide (Magnesium Oxide) 400 mg PO TID [facility] Last Admin: 03/29/17 14:19 Dose: 400 mg Multivitamins/Minerals/Vitamin C (Tab-A-Luz Elena) 1 tab PO DAILY [facility] Last Admin: 03/29/17 10:56 Dose: 1 tab Ondansetron HCl (Zofran) 4 mg IV Q4H PRN PRN Reason: Nausea/Vomiting Pantoprazole Sodium (Protonix Iv) 40 mg IV Q24H [facility] Last Admin: 03/28/17 23:14 Dose: 40 mg Sodium Chloride (Saline Flush) 10 ml FLUSH ASDIRECT[facility] PRN PRN Reason: Keep Vein Open Last Admin: 03/29/17 08:00 Dose: 10 ml Thiamine HCl (Vitamin B-1) 100 mg PO DAILY [facility] Last Admin: 03/29/17 11:14 Dose: 100 mg Discontinued Medications Sodium Chloride (Normal Saline) 1,000 mls @ 125 mls/hr IV ASDIRECTED [facility] Dextrose/Sodium Chloride (Dextrose 5%-Normal Saline) 1,000 mls @ 125 mls/hr IV ASDIRECTED [facility] Last Admin: 03/29/17 07:15 Dose: 125 mls/hr Thiamine HCl 100 mg/ Sodium (Chloride) 51 mls @ 100 mls/hr IV ONETIME ONE Stop: 03/28/17 23:02 Last Admin: 03/28/17 23:17 Dose: 100 mls/hr Lorazepam (Ativan) Confirm Administered Dose 2 mg .ROUTE .STK-MED ONE Stop: 03/28/17 20:26 Last Admin: 03/28/17 20:38 Dose: Not Given Lorazepam (Ativan) Confirm Administered Dose 2 mg .ROUTE .STK-MED ONE Stop: 03/28/17 22:07 Last Admin: 03/28/17 22:27 Dose: Not Given Lorazepam (Ativan) 1 mg PO BEDTIME [facility] Lorazepam (Ativan) 2 mg PO BEDTIME [facility] Metoprolol Tartrate (Lopressor) 25 mg PO Q6H PRN PRN Reason: See Label Comment Potassium Chloride (Potassium Chloride Solution) 40 meq PO ONETIME ONE Stop: 03/28/17 21:35 Last Admin: 03/28/17 22:20 Dose: 40 meq *Q Meaningful Use (DIS) - VTE *Q VTE Criteria *Q: - Stroke *Q Stroke Criteria *Q: - AMI *Q AMI Criteria *Q:
[2017-03-29] MEDS ORDERED: LORazepam 1 MG Tab PO SCH ×2 (21:00)
--- NOTE | 2017-03-30 11:29 | CR ---
INDICATION: EtOH withdrawal. CHEST: A single AP upright view of the chest, 03/28/2017, compared with 2016, revealed the heart to be slightly enlarged. The aorta is tortuous with no definite calcifications. Overlying EKG leads are noted. A definite active infiltrate or effusion was not identified. However, patchy bronchopneumonia is difficult to exclude at the lung bases with the heavy markings present in those areas. IMPRESSION: 1. No definite acute process, but difficult to exclude minimal patchy bronchopneumonia at the medial lung bases, especially on the right. 2. Probable ASHD. MTDD
== END 2017-03-29 20:10 | disposition home or self-care (01) ==
LOC: FB.ED 20:08 → FB.ICU 22:24
PROVIDERS: ADMIT Emergency Medicine; ATTEND Family Medicine
DX: F10.239 Alcohol dependence with withdrawal, unspecified (principal); E87.6 Hypokalemia; R56.9 Unspecified convulsions; R79.89 Other specified abnormal findings of blood chemistry; Z51.5 Encounter for palliative care; Z79.899 Other long term (current) drug therapy; Z90.49 Acquired absence of other specified parts of digestive tract; Z87.891 Personal history of nicotine dependence
CPT/HCPCS: 36415; 70450; 71045; 80053; 82150; 83605; 83735; 84443; 84484; 85025; 85379; 87040; 87081; 87430; 87804; 93005; 96361; 96365; 96372; 96375; 99285; A9270-GY; C9113; G0378; G0480; J2060; J3411; J7030; J7050

== ENCOUNTER 2017-04-05 20:25 | Emergency (ER) | payer MEDICAID ==
[2017-04-05] MEDS: Sodium Chloride 0.45% 1,000 ML IV SCH (22:00)
[2017-04-06 02:33] VITALS: BP 131/79
--- NOTE | 2017-04-06 09:34 | ER ---
DATE SEEN: 04/05/2017 TIME SEEN: 2230 hours. CHIEF COMPLAINT: Alcohol intoxication. HISTORY OF PRESENT ILLNESS: This is a 61-year-old male, who was brought in by law enforcement. He was apparently picked up from his home because of parole issues. He had been drinking most of the day and initially was not able to tell me how much, but he later divulged that he has taken 4 units of vodka. He is a well-known alcoholic and was here about a week ago for seizures that were related to the alcohol withdrawal. He has no further complaints tonight except for the drinking. Neither does he have any headaches, chest pain, shortness of breath, fever, or chills. No recent seizures. CURRENT MEDICATIONS: Please see the electronic record. ALLERGIES: He has no known allergies. PHYSICAL EXAMINATION: GENERAL: He is not in any cardiopulmonary distress. He is alert, oriented x3. VITAL SIGNS: Unremarkable. HEAD: Normal size. EYES: [place]. NECK: Supple. CHEST: Clear. ABDOMEN: Soft. MENTAL STATUS: Answers questions well. He does appear intoxicated with an odor of alcohol about him. LABORATORY DATA: Sodium was 148. He had normal creatinine. Alcohol level was 0.38 and amylase was 121. He was unable to give us urine for urinalysis and urine drug screen. IMPRESSION: Alcohol intoxication. PLAN: I gave him 1 L of half-normal saline because of his hypernatremia. I see no reason to keep him here. I discharged him back to law enforcement to continue his current medications and follow up with his PCP tomorrow or with the nurse at the [facility]. Should he have severe withdrawal symptoms or seizures, then I would advise him to bring him back to the emergency department. /[id number] KEYLA/CHRISTINA
== END 2017-04-05 23:30 ==
LOC: FB.ED 20:25
DX: F10.129 Alcohol abuse with intoxication, unspecified (principal); Y90.0 Blood alcohol level of less than 20 mg/100 ml
CPT/HCPCS: 36415; 80053; 80305; 82140; 82150; 83735; 85025; 85610; 96360; 99283; G0480; J3490